=== PATIENT | male | born 1960 | race Caucasian/White ===

== ENCOUNTER → 2017-08-03 | Outpatient (CLI) | payer OTHER ==
--- NOTE | 2017-08-03 12:26 | XR ---
Lumbosacral spine HISTORY: Back pain 5 views of the lumbosacral spine submitted No comparisons Posterior fusion present at L3-4, L5-S1. Laminectomies have been performed, intervertebral spacing ma terial present at L3-4, L4-5, cages present at L5-S1. Bone mineralization is reduced. Loss of disc he ight present at the intervertebral levels L3-4, L4-5 and L5-S1 greater than T12-L1, L1-2 and L2-3. Mi ld anterior wedging is present at T12. There is multilevel spondylosis. Sclerosis present in the post erior elements of the lumbar spine. Alignment is anatomic. IMPRESSION: Postop changes. Degenerative disc disease and facet arthropathy.
== END ==
LOC: RADXRMAIN 09:35
PROVIDERS: ATTEND Family Medicine
DX: M51.36 Other intervertebral disc degeneration, lumbar region (principal); M46.86 Other specified inflammatory spondylopathies, lumbar region; Z98.890 Other specified postprocedural states
CPT/HCPCS: 72110